=== PATIENT | male | born 1985 | race African-American/Black ===

== ENCOUNTER 2021-12-18 08:20 | Emergency (ER) | payer BC, OTHER ==
[2021-12-18 08:27] VITALS: BP 155/85; PULSE 108; RESP 20; TEMP 97.7; BMI 35.9
[2021-12-18] MEDS ORDERED: LACTATED RINGERS SOLUTION 1000 ML INFUS.BAG IV ONE (08:38)
[2021-12-18] MEDS ORDERED: METOCLOPRAMIDE HCL INJECTION 10 MG/2 ML VIAL IVPB ONE (08:38)
[2021-12-18] MEDS ORDERED: ACETAMINOPHEN 1000 MG/100 ML BAG IVPB ONE (08:38)
[2021-12-18] MEDS ORDERED: ACETAMINOPHEN INJECTION 100 ML IVPB ONE (09:06)
[2021-12-18] MEDS ORDERED: METOCLOPRAMIDE HCL INJECTION 10 MG/2 ML VIAL ONE (09:06)
[2021-12-18 09:44] LABS: BASO % 0.2 % (0-2.0); EOS % 1.1 % (0-4.5); HEMATOCRIT 49.7 % (35.4-49); HEMOGLOBIN 16.9 GM/dL (11.7-16.9); LYMPH % 11.6 % (8-40); MCH 32.1 pg (25.7-33.7); MCHC 34.1 g/dl (32.0-35.9); MEAN CELL VOLUME 94.3 fl (80-96); MEAN PLT VOLUME 7.9 fl (7.5-11.1); MONO % 5.5 % (3.8-10.2); NEUT % 81.6 % (42.8-82.8); PLATELET COUNT 194 10^3/uL (134-434); RBC 5.27 M/mm3 (4.00-5.60); RDW 13.6 % (11.9-15.9); WHITE BLOOD COUNT 6.1 K/mm3 (4.0-10.0)
[2021-12-18 09:49] LABS: INR 0.96 (0.83-1.09)
[2021-12-18 09:52] LABS: ACTIVATED PTT 33.7 SECONDS (25.2-36.5)
[2021-12-18 09:58] LABS: CHLORIDE 107 mmol/L (98-107); SODIUM 142 mmol/L (136-145)
[2021-12-18 10:06] LABS: ALBUMIN 4.2 g/dl (3.4-5.0); BLOOD UREA NITROGEN 21.6 mg/dL (7-18); CREATININE 1.1 mg/dL (0.55-1.3); SGPT/ALT 44 U/L (13-61)
[2021-12-18 10:07] LABS: GLUCOSE,RANDOM 93 mg/dL (74-106); LIPASE 37 U/L (73-393)
[2021-12-18 10:09] LABS: ALK PHOS 52 U/L (45-117); BILIRUBIN,TOTAL 0.6 mg/dL (0.2-1); TOT PROT 7.3 g/dl (6.4-8.2)
[2021-12-18 10:10] LABS: SGOT/AST 27 U/L (15-37)
[2021-12-18 10:51] LABS: CALCIUM 8.5 mg/dL (8.5-10.1)
[2021-12-18 10:52] LABS: ANION GAP 7 MMOL/L (8-16); CO2 29 mmol/L (21-32)
[2021-12-18 15:16] LABS: PH,URINE 7.5 (5.0-8.0); URINE APPEARANCE CLEAR; URINE BILIRUBIN NEGATIVE (NEGATIVE); URINE COLOR YELLOW; URINE GLUCOSE (UA) NEGATIVE (NEGATIVE); URINE KETONE NEGATIVE (NEGATIVE); URINE LEUK ESTERASE NEGATIVE (NEGATIVE); URINE NITRITE NEGATIVE (NEGATIVE); URINE PROTEIN NEGATIVE (NEGATIVE)
== END 2021-12-18 15:33 | disposition home or self-care (01) ==
LOC: JER 08:20
PROC: 3E033GC Introduction of Other Therapeutic Substance into Peripheral Vein, Percutaneous Approach (ICD-10-PCS; principal; 2021-12-18)
DX: R11.2 Nausea with vomiting, unspecified (principal)
CPT/HCPCS: 36415; 71046-TC-FY; 76705-TC; 80053; 81003; 83690; 84484; 85025; 85610; 85730; 93005; 93010; 99285-25; C9803-CS; U0003; U0005

== ENCOUNTER 2022-03-16 08:13 | Emergency (ER) | payer OTHER ==
[2022-03-16 08:23] VITALS: BP 123/85; PULSE 105; RESP 20; TEMP 98.5; BMI 31.5
== END 2022-03-16 09:32 | disposition home or self-care (01) ==
LOC: JER 08:13
DX: U07.1 COVID-19 (principal); R05.1 Acute cough; R09.81 Nasal congestion
CPT/HCPCS: 0241U-QW; 99283-25

== ENCOUNTER 2022-06-12 09:49 | Emergency (ER) | payer OTHER ==
[2022-06-12 10:02] VITALS: BP 142/82; PULSE 114; RESP 16; TEMP 97.8; BMI 35.4
[2022-06-12] MEDS ORDERED: ACETAMINOPHEN 500 MG TABLET (FP) PO ONE (10:08)
[2022-06-12] MEDS ORDERED: ACETAMINOPHEN 500 MG TABLET (FP) ONE (10:11)
== END 2022-06-12 10:28 | disposition home or self-care (01) ==
LOC: JERFT 09:49
DX: L73.9 Follicular disorder, unspecified (principal)
CPT/HCPCS: 99283-25

== ENCOUNTER 2022-08-18 09:52 | Emergency (ER) | payer OTHER ==
[2022-08-18 10:11] VITALS: BP 124/68; PULSE 91; RESP 18; TEMP 98.6; BMI 35.2
[2022-08-18] MEDS ORDERED: LIDOCAINE HCL 2% (50ML VIAL) SQ ONE (12:07)
== END 2022-08-18 13:15 | disposition home or self-care (01) ==
LOC: JERFT 09:52 → JER 09:52 → JERFT 13:15
PROC: 0HDMXZZ Extraction of Right Foot Skin, External Approach (ICD-10-PCS; principal; 2022-08-18)
DX: M79.671 Pain in right foot (principal)
CPT/HCPCS: 73630-TC-RT-FY; 99283-25

== ENCOUNTER 2022-11-16 08:28 | Emergency (ER) | payer OTHER ==
[2022-11-16 08:35] VITALS: BP 121/75; PULSE 90; RESP 18; TEMP 98.6; BMI 33.7
[2022-11-16] MEDS ORDERED: IBUPROFEN 600 MG TABLET (FP) PO ONE ×2 (08:45→09:08)
== END 2022-11-16 11:20 | disposition home or self-care (01) ==
LOC: JERFT 08:28
DX: S63.92XA Sprain of unspecified part of left wrist and hand, initial encounter (principal); M79.642 Pain in left hand; R22.32 Localized swelling, mass and lump, left upper limb; W01.0XXA Fall on same level from slipping, tripping and stumbling without subsequent striking against object, initial encounter
CPT/HCPCS: 73110-TC-LT-FY; 73130-TC-LT-FY; 99283-25

== ENCOUNTER 2023-03-10 08:08 | Emergency (ER) | payer OTHER ==
[2023-03-10 08:11] VITALS: BP 135/87; RESP 18; TEMP 98.2; BMI 33.2
[2023-03-10] MEDS ORDERED: KETOROLAC TROMETHAMINE 30 MG/1 ML VIAL IM ONE (08:22)
[2023-03-10] MEDS ORDERED: KETOROLAC TROMETHAMINE 30 MG/1 ML VIAL ONE (09:03)
[2023-03-10 09:11] VITALS: PULSE 98
== END 2023-03-10 11:07 | disposition home or self-care (01) ==
LOC: JER 08:08
PROC: 3E0233Z Introduction of Anti-inflammatory into Muscle, Percutaneous Approach (ICD-10-PCS; principal; 2023-03-10)
DX: R05.9 Cough, unspecified (principal); B34.9 Viral infection, unspecified; M79.10 Myalgia, unspecified site; R51.9 Headache, unspecified; R53.83 Other fatigue; R50.9 Fever, unspecified; Z20.822 Contact with and (suspected) exposure to COVID-19
CPT/HCPCS: 0241U-QW; 87651; 99284-25

== ENCOUNTER 2023-04-12 10:22 | Emergency (ER) | payer OTHER ==
[2023-04-12 10:40] VITALS: BP 133/92; RESP 18; TEMP 98.4; BMI 31.0
[2023-04-12] MEDS ORDERED: LIDOCAINE 5% TOPICAL PATCH TP ONE (11:05)
[2023-04-12] MEDS ORDERED: ACETAMINOPHEN 500 MG TABLET (FP) PO ONE (11:05)
[2023-04-12] MEDS ORDERED: KETOROLAC TROMETHAMINE 15 MG/ML VIAL IM ONE (11:14)
[2023-04-12] MEDS ORDERED: ACETAMINOPHEN 325 MG TABLET (FP) ONE (11:24)
[2023-04-12] MEDS ORDERED: LIDOCAINE 4% PATCH TP ONE ×2 (11:25)
[2023-04-12] MEDS ORDERED: KETOROLAC TROMETHAMINE 15 MG/ML VIAL ONE (11:25)
[2023-04-12 12:56] VITALS: PULSE 92
[2023-04-12] MEDS ORDERED: LIDOCAINE PATCH REMOVAL MC SCH ×2 (22:00)
== END 2023-04-12 13:03 | disposition home or self-care (01) ==
LOC: JER 10:22
PROC: 3E0233Z Introduction of Anti-inflammatory into Muscle, Percutaneous Approach (ICD-10-PCS; principal; 2023-04-12)
DX: M54.50 Low back pain, unspecified (principal)
CPT/HCPCS: 99284-25